=== PATIENT | female | born 1990 | race Caucasian/White ===

== ENCOUNTER 2018-03-24 12:35 | Emergency (ER) | payer SELFPAY ==
[~2018-03-24] VITALS: Ht 167.6 cm; Wt 62.2 kg
--- NOTE | 2018-03-24 13:50 | NUR ---
TO ROOM FROM LOBBY. NAD.
--- NOTE | 2018-03-24 14:23 | NUR ---
Assumed care of patient. C/O double vision and LLQ pain. Denies all other neuro and urinary symptoms. IV started. Mother at bedside. Will continue to monitor.
[2018-03-24] MEDS ORDERED: SODIUM CHLORIDE FLUSH 10ML SYR IVF ONE (14:30)
[2018-03-24 14:41] LABS: BASOPHILS # (AUTO) 0.02 x10^3/uL (0-0.1); BASOPHILS % (AUTO) 0 % (0-1); EOSINOPHILS # (AUTO) 0.13 x10^3/uL (0-0.4); EOSINOPHILS % (AUTO) 2 % (1-7); LYMPHOCYTES # (AUTO) 1.61 x10^3/uL (1-3.4); LYMPHOCYTES % (AUTO) 20 % (22-44); MD NO; MEAN CORPUSCULAR HEMOGLOBIN 30.9 pg (27.0-34.8); MEAN CORPUSCULAR HGB CONC 33.5 g/dL (32.4-35.8); MONOCYTES # (AUTO) 0.66 x10^3/uL (0.2-0.8); MONOCYTES % (AUTO) 8 % (2-9); NEUTROPHILS # (AUTO) 5.56 x10^3/uL (1.8-6.8); NEUTROPHILS % (AUTO) 70 % (42-75); PLATELET COUNT 275 x10^3/uL (130-400); RED BLOOD COUNT 4.33 x10^6/uL (3.82-5.3)
[2018-03-24 14:48] LABS: ALANINE AMINOTRANSFERASE 14 U/L (12-78); ANION GAP 5 mmol/L (5-15); C-REACTIVE PROTEIN, QUANT 0.03 mg/dL (0.02-0.49); CALCIUM 8.5 mg/dL (8.5-10.1); CHLORIDE 111 mmol/L (98-107); CREATININE 0.91 mg/dL (0.55-1.02)
[2018-03-24 14:52] LABS: ALKALINE PHOSPHATASE 47 U/L (45-117); BILIRUBIN,TOTAL 0.4 mg/dL (0.2-1.0); TOTAL PROTEIN 6.7 g/dL (6.4-8.2)
[2018-03-24] MEDS ORDERED: GADOBUTROL 7.5 MMOL/7.5 ML PFS ONE (15:05)
[2018-03-24 15:16] LABS: HCT (SEDRATE) 39.9 % (34.6-47.8)
[2018-03-24 15:48] LABS: MICROSCOPIC NOT IND
[2018-03-24 15:53] LABS: CULTURE INDICATED? NO
--- NOTE | 2018-03-24 15:57 | NUR ---
NEURO RE-PAGED AT THIS TIME.
--- NOTE | 2018-03-24 16:22 | NUR ---
Back from [place]. Corinne thompson.
--- NOTE | 2018-03-24 17:24 | NUR ---
Patient/Caregiver given discharge instructions and they have confirmed that they understand the instructions. Patient ambulatory with steady gait.
[2018-03-24 17:25] VITALS: BP 113/80
== END 2018-03-24 17:25 | disposition home or self-care (01) ==
LOC: ED 14:38
DX: N83.292 Other ovarian cyst, left side (principal); R42 Dizziness and giddiness; R53.1 Weakness; R53.83 Other fatigue
CPT/HCPCS: 36415; 70553; 76830; 80053; 81003; 84703; 85025; 85651; 86140; 96365; 99284; A9585; J2930

== ENCOUNTER 2018-03-25 14:09 | Emergency (ER) | payer SELFPAY ==
[~2018-03-25] VITALS: Ht 167.6 cm; Wt 64.5 kg
[2018-03-25] MEDS ORDERED: SODIUM CHLORIDE FLUSH 10ML SYR IVF ONE (15:30)
[2018-03-25 15:35] LABS: ALBUMIN 3.9 g/dL (3.4-5.0); ANION GAP 7 mmol/L (5-15); CALCIUM 8.9 mg/dL (8.5-10.1); CHLORIDE 109 mmol/L (98-107); CREATININE 0.82 mg/dL (0.55-1.02); MEAN CORPUSCULAR HEMOGLOBIN 30.8 pg (27.0-34.8); MEAN CORPUSCULAR HGB CONC 33.2 g/dL (32.4-35.8); MEAN CORPUSCULAR VOLUME 92.8 fL (80-100); MEAN PLATELET VOLUME 8.2 fL (7.4-10.4); PLATELET COUNT 303 x10^3/uL (130-400); RED BLOOD COUNT 4.39 x10^6/uL (3.82-5.3); RED CELL DISTRIBUTION WIDTH 12.9 % (9.6-15.2)
[2018-03-25 16:20] VITALS: BP 117/72
[2018-03-25 16:40] LABS: BASOPHILS # (AUTO) 0.02 x10^3/uL (0-0.1); BASOPHILS % (AUTO) 0 % (0-1); EOSINOPHILS % (AUTO) 0 % (1-7); LYMPHOCYTES # (AUTO) 1.49 x10^3/uL (1-3.4); LYMPHOCYTES % (AUTO) 7 % (22-44); MD SCAN; MONOCYTES # (AUTO) 0.82 x10^3/uL (0.2-0.8); MONOCYTES % (AUTO) 4 % (2-9); NEUTROPHILS % (AUTO) 88 % (42-75)
== END 2018-03-25 16:22 | disposition home or self-care (01) ==
LOC: ED 16:16
DX: H53.8 Other visual disturbances (principal)
CPT/HCPCS: 36415; 71045; 80048; 82040; 85025; 96365; 99284; J2930

== ENCOUNTER 2018-03-26 14:39 | Emergency (ER) | payer SELFPAY ==
[~2018-03-26] VITALS: Ht 167.6 cm; Wt 64.1 kg
[2018-03-26 14:41] VITALS: BP 136/90
--- NOTE | 2018-03-26 15:41 | NUR ---
PT TO RME FOR INFUSION THEN D/C
--- NOTE | 2018-03-26 16:08 | NUR ---
Pt presents for infusion of Solu-medrol. Pt with double vision. MRI shows lesions possiblely from MS.
== END 2018-03-26 16:28 | disposition home or self-care (01) ==
LOC: ED 16:11
DX: H53.2 Diplopia (principal)
CPT/HCPCS: 96365; 99283; J2930